=== PATIENT | female | born 1955 | race Caucasian/White ===

== ENCOUNTER 2016-09-05 12:42 | Emergency (ER) | payer MEDICAID ==
[~2016-09-05] VITALS: Ht 170.2 cm; Wt 88.5 kg
[~2016-09-05 12:42] MED LIST: ATEN25TA PO; FLUT1DIS5 IH; GLYB5TAB7 PO; LORA10CA PO; LORA1TAB82 PO; METF850T2 PO; SIMV40TA5 PO; SITA100T PO
[2016-09-05 12:43] VITALS: BP 151/88
== END 2016-09-05 13:45 | disposition home or self-care (01) ==
LOC: ER 12:43
DX: F41.9 Anxiety disorder, unspecified (principal); E11.9 Type 2 diabetes mellitus without complications; J45.909 Unspecified asthma, uncomplicated; I10 Essential (primary) hypertension; K21.9 Gastro-esophageal reflux disease without esophagitis; R00.0 Tachycardia, unspecified; Z88.5 Allergy status to narcotic agent; Z88.6 Allergy status to analgesic agent; Z88.8 Allergy status to other drugs, medicaments and biological substances; V49.49XA Driver injured in collision with other motor vehicles in traffic accident, initial encounter; Y93.89 Activity, other specified; Y92.89 Other specified places as the place of occurrence of the external cause; Y99.9 Unspecified external cause status
CPT/HCPCS: 99283; A4606; Z7610